=== PATIENT | male | born 1945 | race Caucasian/White ===

== ENCOUNTER 2018-02-22 12:44 | Inpatient (IN) | payer OTHER ==
[~2018-02-22] VITALS: Ht 165.1 cm; Wt 74.4 kg
[2018-04-16] MEDS ORDERED: LIRICA PO (11:09)
[2018-04-16] MEDS ORDERED: PERCOCET 5-3251 EACH PO (11:10)
[2018-04-16] MEDS ORDERED: CYMBALTA30 MG PO (11:10)
[2018-04-16] MEDS ORDERED: TAMS0.4C PO (11:11)
[2018-04-16] MEDS ORDERED: PROSCAR5 MG PO ×2 (11:11→11:16)
[2018-04-16] MEDS ORDERED: LOPRESSOR25 MG PO (11:12)
[2018-04-16] MEDS ORDERED: TRICOR145 MG PO (11:12)
[2018-04-16] MEDS ORDERED: CLARITIN10 M1 PO (11:14)
[2018-04-16] MEDS ORDERED: ASPIR 8181 MG PO (11:14)
[2018-04-16] MEDS ORDERED: [UNRECOGNIZED DRUG - OTHER] PO (11:15)
[2018-04-24] MEDS ORDERED: DOCUSATE SODIU100 MG PO (13:07)
[2018-04-24] MEDS ORDERED: CLONAZEPAM1 MG PO (13:08)
[2018-04-24] MEDS ORDERED: PERCOCET 5-3251 EACH PO (13:08)
== END 2018-04-24 15:12 | disposition home or self-care (01) | DRG 454 ==
LOC: SURG 04-16 10:00 → O/R 04-23 04:57 → PED 04-23 04:57 → SURG 04-23 07:00 → PED 04-23 13:36
PROVIDERS: Orthopaedic Surgery Orthopaedic Surgery of the Spine
PROC: 0RG2071 Fusion of 2 or more Cervical Vertebral Joints with Autologous Tissue Substitute, Posterior Approach, Posterior Column, Open Approach (ICD-10-PCS; 2018-04-23)
PROC: 0RT30ZZ Resection of Cervical Vertebral Disc, Open Approach (ICD-10-PCS; 2018-04-23)
PROC: 07DS3ZZ Extraction of Vertebral Bone Marrow, Percutaneous Approach (ICD-10-PCS; 2018-04-23)
PROC: 0RG20A0 Fusion of 2 or more Cervical Vertebral Joints with Interbody Fusion Device, Anterior Approach, Anterior Column, Open Approach (ICD-10-PCS; principal; 2018-04-23 07:00)
DX: M47.12 Other spondylosis with myelopathy, cervical region (principal); M50.023 Cervical disc disorder at C6-C7 level with myelopathy; I10 Essential (primary) hypertension